=== PATIENT | male | born 1995 | race Caucasian/White ===

== ENCOUNTER 2019-02-21 13:56 | Emergency (ER) | payer OTHER, SELFPAY ==
[2019-02-21 14:00] VITALS: BP 151/84; PULSE 102; RESP 18; TEMP 37.6; O2SAT 99
--- NOTE | 2019-02-21 14:15 | DI.RAD.S_ITS ---
PROCEDURE: XR WRIST RT MIN 3V INDICATIONS: wrist injury TECHNIQUE: 4 views of the wrist were acquired. COMPARISON: None. FINDINGS: Bones: No fractures or dislocations. No suspicious bony lesions. Scaphoid view: The scaphoid appears intact. Soft tissues: No suspicious soft tissue calcifications. IMPRESSION: 1. No displaced fracture or dislocation. The Dictated by: Martin Caruso M.D. on 02/21/2019 at 15:09 Approved by: Martin Caruso M.D. on 02/21/2019 at 15:10
[2019-02-21 14:20] VITALS: TEMP 37.2
--- NOTE | 2019-02-21 14:30 | DI.RAD.S_ITS ---
PROCEDURE: XR CALCANEOUS RT MIN 2V INDICATIONS: Fall onto heels bilaterally TECHNIQUE: Two views of the calcaneus were acquired. COMPARISON: None. FINDINGS: Bones: No depressed or displaced calcaneal fracture. No suspicious bony lesions. Soft tissues: No suspicious calcifications. Achilles tendon appears grossly intact. IMPRESSION: 1. No depressed or displaced calcaneal fracture. If clinical concern persists for a nondisplaced fracture, recommend a repeat study in 7-10 days. Dictated by: Martin Caruso M.D. on 02/21/2019 at 15:00 Approved by: Martin Caruso M.D. on 02/21/2019 at 15:07
--- NOTE | 2019-02-21 14:30 | DI.RAD.S_ITS ---
PROCEDURE: XR FOOT RT MIN 3V INDICATIONS: Fall onto heels bilaterally TECHNIQUE: 3 views of the foot were acquired. COMPARISON: [facility], CR, XR ANKLE RT MIN 3V, 02/21/2019, 14:38. [facility], RG, XR FOOT 2V RIGHT, 11/11/1998, 13:45. FINDINGS: Bones: No displaced or depressed fractures. No dislocations. No suspicious bony lesions. Soft tissues: No tibiotalar joint effusion. Achilles tendon appears normal. IMPRESSION: 1. No displaced or depressed fractures. If clinical concern persists for a nondisplaced calcaneal fracture, recommend a repeat study in 7-10 days. Dictated by: Martin Caruso M.D. on 02/21/2019 at 14:58 Approved by: Martin Caruso M.D. on 02/21/2019 at 14:59
--- NOTE | 2019-02-21 14:30 | DI.RAD.S_ITS ---
PROCEDURE: XR FOOT LT MIN 3V INDICATIONS: Fall onto heels bilaterally TECHNIQUE: 3 views of the foot were acquired. COMPARISON: [facility], CR, XR FOOT RT MIN 3V, 02/21/2019, 14:35. FINDINGS: Bones: No displaced fracture or subluxation. No suspicious bony lesions. Soft tissues: No tibiotalar joint effusion. Achilles tendon appears normal. IMPRESSION: 1. No displaced fracture or subluxation. Dictated by: Martin Caruso M.D. on 02/21/2019 at 15:08 Approved by: Martin Crauso M.D. on 02/21/2019 at 15:09
--- NOTE | 2019-02-21 14:30 | DI.RAD.S_ITS ---
PROCEDURE: XR CALCANEOUS LT MIN 2V INDICATIONS: Fall onto heels bilaterally TECHNIQUE: Two views of the calcaneus were acquired. COMPARISON: [facility], KYLE, XR FOOT LT MIN 3V, 02/21/2019, 14:45. FINDINGS: Bones: No displaced or depressed fracture. No suspicious bony lesions. Soft tissues: No suspicious calcifications. Achilles tendon appears grossly intact. IMPRESSION: 1. No displaced or depressed fracture. If clinical concern persists for nondisplaced fracture, recommend a repeat study in 7-10 days. Dictated by: Martin Caruso M.D. on 02/21/2019 at 15:07 Approved by: Martin Caruso M.D. on 02/21/2019 at 15:08
--- NOTE | 2019-02-21 14:30 | DI.RAD.S_ITS ---
PROCEDURE: XR ANKLE RT MIN 3V INDICATIONS: Fall onto heels bilaterally, R ankle pain TECHNIQUE: 3 or views of the ankle were acquired. COMPARISON: [facility], RG, XR FOOT 2V RIGHT, 11/11/1998, 13:45. [facility], CR, XR CALCANEOUS RT MIN 2V, 02/21/2019, 14:40. FINDINGS: Bones: No depressed or displaced fractures. There is a longitudinal lucency within the fibula on the oblique view which is likely artifactual in absence of associated soft tissue swelling. Ankle mortise is normally aligned. No suspicious bony lesions. Soft tissues: No tibiotalar joint effusion. Achilles tendon appears normal. IMPRESSION: 1. No depressed or displaced fracture. If clinical concern persists, recommend a repeat study in 7-10 days. 2. Linear lucency in the distal fibula likely artifactual in absence of overlying soft tissue swelling. Dictated by: Martin Caruso M.D. on 02/21/2019 at 14:51 Approved by: Martin Caruso M.D. on 02/21/2019 at 14:56
--- NOTE | 2019-02-21 14:33 | ED.LOWEXIN ---
HPI - Extremity Injury (Lower) General Chief Complaint: Extremity Injury, Lower Stated Complaint: both ankles rt wrist pain/fell off boat on ground Time Seen by Provider: 02/21/19 14:10 Source: patient Mode of arrival: Wheelchair History of Present Illness HPI Narrative: This is a 23-year-old male presents with bilateral heel pain and right wrist pain. 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 He did not hit his head or neck. He is complaining of pain in his right wrist which is moderate in severity and worse with flexion or palpation, and pain is bilateral heels is worse with bearing weight. He has been able to walk but with great pain. He denies any tingling or numbness. No chest pain, shortness of breath, abdominal pain, or confusion. Related Data Allergies Allergy/AdvReac Type Severity Reaction Status Date / Time No Known Drug Allergies Allergy Verified 02/21/19 14:05 Review of Systems Constitutional Constitutional: Denies fever(s) Musculoskeletal Comments: Extremity pain Integumentary/Breasts Skin/Breast: Denies sores and Denies wounds Patient History Social History Smoking Status: Never smoker Smoking Status: Never smoker alcohol intake frequency: 0-2 drinks per day Substance Use Type: does not use Exam Narrative Exam Narrative: General: Non-toxic, well-appearing Head: Atraumatic Neck: Normal range of motion, no midline tenderness to palpation, no external signs of trauma Cardiac: RRR on my exam Respiratory: Normal work of breathing, clear to auscultation bilaterally Abd: Soft, non-tender to palpation in all 4 quadrants Extremities: No gross deformities in all 4 extremities. Patient has tenderness over the radial dorsal aspect of the right wrist, there is no tenderness of hands or digits, with the proximal forearm. Patient has tenderness to his bilateral heels, no forefoot tenderness to palpation. His right ankle is mildly tender over the bilateral malleoli, left ankle was nontender. Feet and arms are neurovascularly intact with strong distal pulses, good capillary refill, and intact motor function to fingers and toes. Neuro: Alert and oriented x 3 Initial Vital Signs Initial Vital Signs: Vital Signs Temperature 99.6 F 02/21/19 14:00 Pulse Rate 102 H 02/21/19 14:00 Respiratory Rate 18 02/21/19 14:00 Blood Pressure 151/84 H 02/21/19 14:00 Pulse Oximetry 99 02/21/19 14:00 Course Orders Ordered: ED Orders 02/21/19 14:15 XR wrist RT min 3V Stat 02/21/19 14:30 XR ankle RT min 3V Stat XR calcaneus LT min 2V Stat XR calcaneus RT min 2V Stat XR foot LT min 3V Stat XR foot RT min 3V Stat Vital Signs Vital signs: Vital Signs - 8 hr 02/21/19 14:00 02/21/19 14:20 02/21/19 16:40 Temperature 99.6 F 98.9 F Pulse Rate 102 H 91 H Respiratory Rate 18 18 Blood Pressure 151/84 H 139/87 Pulse Oximetry 99 98 [facility] - Extremity Injury (Lower) Differential Diagnosis Differential diagnosis: Likely ankle sprain and strain and other (Ankle/foot/calcaneal fracture, wrist sprain, fracture) Imaging Data XR Bilateral feet, bilateral calcaneus, right ankle, Right wrist: Radiologist's impression: No acute fractures or osseous abnormality seen on imaging. [facility] Narrative Medical decision making narrative: Patient is well-appearing on arrival, was able to bear some weight on his feet, his tenderness is mostly located over his bilateral heels. X-rays of all those tender regions was performed and there are no signs of fracture dislocation. There was a small linear lucency seen on the distal fibula on the ankle x-ray, repeat examination palpation is area causes no point tenderness, he is no swelling or bruising or signs of external trauma over this area either. He was able to get out of bed and bear weight on his bilateral feet, making occult fracture less likely. I also check specifically for scaphoid tenderness, he had none on his right wrist. I discussed the results of her studies, and that there is a risk of occult fracture. I recommended that he use crutches until he is able to walk normally, and that he return if he has any worsening symptoms, that he should repeat examinations and potentially imaging in 1 week if he is not having improvement in his symptoms. Patient agreed to this plan and was discharged home in the care of his father Discharge Plan Departure Patient Disposition: Home Clinical Impression: Heel pain, bilateral Discharge Date/Time: 02/21/19 16:45 Instructions: How To Perform RICE (Rest, Ice, Compress, Elevate) Activity Restrictions/Additional Instructions: Your x-rays do not show signs of broken bones today. Occasionally intial x-rays miss very small or nondisplaced breaks, so if your pain is getting worse or if it is not improving over the next week, You should be reassessed in a week wither with your PCP or here in the ED for consideration of repeat imaging. You should use crutches until you are able to walk on you feet and heels normally. Youmay take Tylenol ibuprofen for discomfort Stand Alone Forms: Work Release Note
[2019-02-21 16:40] VITALS: BP 139/87; PULSE 91; RESP 18; O2SAT 98
== END 2019-02-21 16:45 | disposition home or self-care (01) ==
PROVIDERS: Emergency Provider Emergency Medicine
DX: S90.32XA Contusion of left foot, initial encounter (principal); S90.31XA Contusion of right foot, initial encounter; M25.531 Pain in right wrist; W17.89XA Other fall from one level to another, initial encounter; Y99.0 Civilian activity done for income or pay
CPT/HCPCS: 73110; 73610; 73630; 73650; 99283

== ENCOUNTER → 2022-10-09 13:01 | Outpatient (CLI) | payer OTHER, SELFPAY ==
--- NOTE | 2022-10-09 13:07 | DI.RAD.S_ITS ---
PROCEDURE: XR KNEE RT 3V INDICATIONS: Knee pain TECHNIQUE: 3 views of the knee were acquired. COMPARISON: None. FINDINGS: Bones: No fractures or dislocations. No suspicious bony lesions. Soft tissues: No joint effusion. No suspicious soft tissue calcifications. IMPRESSION: No osseous lesion. If symptoms and/or clinical suspicion for pathology persists, further assessment with advanced imaging (e.g. CT, MRI or bone scan) should be considered. Dictated by: Isabel Cervantes MD, PhD on 10/09/2022 at 14:10 Approved by: Isabel Cervantes MD, PhD on 10/09/2022 at 14:10
== END ==
PROVIDERS: PCP Registered Nurse; Referring Provider Registered Nurse; Visit Provider Registered Nurse
DX: M25.561 Pain in right knee (principal)
CPT/HCPCS: 73562

== ENCOUNTER → 2023-11-26 13:55 | Outpatient (CLI) | payer OTHER, SELFPAY ==
--- NOTE | 2023-11-26 13:56 | DI.RAD.S_ITS ---
PROCEDURE: XR WRIST RT MIN 3V INDICATIONS: r/o fracture s/p FOOSH TECHNIQUE: Four views of the wrist were acquired. COMPARISON: [facility], CR, XR WRIST RT MIN 3V, 02/21/2019, 14:47. FINDINGS: Bones: No fractures or dislocations. No suspicious bony lesions. Soft tissues: No suspicious soft tissue calcifications. IMPRESSION: No acute bony abnormality. Dictated by: Jean Acosat M.D. on 11/27/2023 at 15:57 Approved by: Jean Acosta M.D. on 11/27/2023 at 15:58
== END ==
PROVIDERS: Referring Provider Nurse Practitioner Family; Visit Provider Nurse Practitioner Family
DX: R52 Pain, unspecified (principal)
CPT/HCPCS: 73110

== ENCOUNTER → 2023-12-03 08:02 | Outpatient (CLI) | payer OTHER, SELFPAY ==
--- NOTE | 2023-12-03 08:03 | DI.ECHO.S_ITS ---
[facility]---------+ [facility] : : [id number] : [address] [place] : : [id number] : : Phone: [phone] Echocardiogram Report + + :Name: DEVON ISRAEL Study Date: 12/03/2023 Height: 74 in : :[facility] ReadingLocation: Weight: 160 lb : : Gender: Male BSA: 2.0 m2 : :: 1995 Age: 28 yrs BP: 139/89 mmHg: :Reason For Study: GIDDINESS, DIZZINESS, PALPITATIONS : :Ordering Physician: GAYLA, : :LUCY Performed By: Cele Nolan : :Referring: LUCY SHUKLA : + + Interpretation Summary Normal sinus rhythm. Normal LV size, wall thickness, wall motion and LV systolic function. Ejection fraction is 55-60%. Normal chamber sizes. No significant valvular abnormalities. No prior study available for comparison. Procedure: A two-dimensional transthoracic echocardiogram with color flow and Doppler was performed. The study quality was technically adequate. There is no prior echocardiogram noted for this patient. The patient was in sinus rhythm with heart rates between 65-73 bpm during the exam. Left Ventricle: The left ventricle is normal in size and wall thickness. The ejection fraction is estimated to be 55-60%. Right Ventricle: The right ventricle is normal in size and function. Atria: The left atrial size is normal. Right atrial size is normal. There is no Doppler evidence for an interatrial shunt. Mitral Valve: There is a flat closure plane of the the mitral valve leaflets. There is trace mitral regurgitation. Aortic Valve: The aortic valve is trileaflet. The aortic valve opens well. There is no aortic valve stenosis. There is trace aortic regurgitation. Tricuspid Valve: The tricuspid valve is normal in structure and function. There is trace tricuspid regurgitation. Pulmonic Valve: The pulmonic valve is not well visualized. There is no pulmonic valvular regurgitation. Great Vessels: The aortic root is normal size. The dimensions of the ascending aorta are normal. The IVC is of normal diameter and collapses greater than 50% with a sniff. This suggests a low right atrial pressure of 3 mm Hg. Pericardium/ Pleura There is no pericardial effusion. There is no pleural effusion. MMode/2D Measurements & Calculations LVIDd: 4.4 cm LVOT diam: 2.0 cm LVIDs: 3.2 cm Ao root diam: 3.4 cm FS: 27.7 % asc Aorta Diam: 2.5 cm IVSd: 0.74 cm Ao Arch Diam (Prox Trans): 2.2 cm LVPWd: 0.86 cm LV veronica. diameter/BSA (cm/m^2): 2.2 LV sys. diameter/BSA (cm/m^2): 1.6 LA A2 area: 14.9 cm2 RA long axis: 3.7 cm LA A4 area: 12.9 cm2 RA area: 10.6 cm2 LA length (vol): 4.4 cm RA vol: 26.2 ml LA vol: 36.7 ml RA : 13.2 ml/m2 LA vol index: 18.6 ml/m2 IVC diam: 0.80 cm RVD1 (basal): 3.2 cm RVD2 (mid): 2.6 cm TAPSE: 2.3 cm Doppler Measurements & Calculations Ao V2 max: 94.2 cm/sec LVOT Max Zuhair: 69.2 cm/sec Ao V2 mean: 69.5 cm/sec LV V1 max P.9 mmHg Ao max P.5 mmHg LV V1 VTI: 12.8 cm Ao mean P.1 mmHg JAMES(I,D): 2.3 cm2 Ao V2 VTI: 17.5 cm JAMES(V,D): 2.3 cm2 sev ratio: 0.73 JAMES indexed to BSA (cm^2/m^2): 1.2 MV E max zuhair: 99.1 cm/sec PA V2 max: 86.6 cm/sec MV A max zuhair: 36.6 cm/sec PA V2 mean: 63.9 cm/sec MV E/A: 2.7 PA mean P.7 mmHg Lat Peak E' Zuhair: 15.9 cm/sec PA pr(Accel): 19.1 mmHg E/E' lat: 6.2 MV dec time: 0.17 sec SV(LVOT): 40.7 ml Electronically signed by: Lashonda Montgomery M.D. on Reading Physician:12/03/2023 03:51 PM
== END ==
PROVIDERS: PCP Registered Nurse; Referring Provider Registered Nurse; Visit Provider Registered Nurse
DX: R00.2 Palpitations (principal); R42 Dizziness and giddiness
CPT/HCPCS: 93306

== ENCOUNTER → 2024-04-27 10:53 | Outpatient (CLI) | payer OTHER, SELFPAY ==
--- NOTE | 2024-04-27 10:53 | DI.MRI.S_ITS ---
PROCEDURE: MR WRIST LT WO CON INDICATIONS: localized swelling of left forearm TECHNIQUE: Noncontrast coronal proton density fast spin echo and T2 fast spin echo with fat saturation; coronal 3-D gradient echo, axial T1 spin echo and T2 fast spin echo with fat saturation, sagittal T1 spin echo through the wrist. COMPARISON: [facility], CR, XR WRIST RT MIN 3V, 11/26/2023, 13:54. FINDINGS: Image quality: Excellent. Bones and cartilage: The carpal bones are normally aligned. No bone marrow contusions or fractures. No evidence for avascular necrosis. Type 2 lunate. No focal cartilage defect. Mild subchondral cystic changes within the posterior trapezoid is likely degenerative. Carpal ligaments: The scapholunate and lunotriquetral ligaments appear intact. On sagittal images, the pisohamate ligament appears intact. Triangular fibrocartilage complex: The triangular fibrocartilage appears intact. The adjacent meniscal homolog appears normal in the absence of intra-articular contrast. The extensor carpi ulnaris tendon is normal in location and morphology. Tendons and soft tissues: Mild tenosynovitis of the flexor tendons proximal to the carpal tunnel. The ulnar nerve appears normal within Guyon's canal. Partial longitudinal tearing of the extensor carpi ulnaris tendon at the level of the distal ulna with superimposed tendinosis and trace tenosynovitis. Mild tendinosis and tenosynovitis of the 1st extensor compartment tendons. Mild 4th compartment tenosynovitis. The remaining extensor tendon compartments demonstrate normal morphology, without pathologic tendon sheath fluid. No soft tissue ganglion cysts. IMPRESSION: 1. Partial longitudinal tearing of the extensor carpi ulnaris tendon at the level of the distal ulna with superimposed tendinosis and trace tenosynovitis. 2. Mild tendinosis and tenosynovitis of the 1st and 4th extensor compartment tendons. 3. Mild tenosynovitis of the flexor tendons proximal to the carpal tunnel. 4. Focal chronic cystic changes within the dorsal portion of the trapezoid, likely related to degenerative changes or remote prior trauma. Approved by: Oneal Aldana M.D. on 04/27/2024 at 12:25
== END ==
PROVIDERS: Referring Provider Family Medicine Sports Medicine; Visit Provider Family Medicine Sports Medicine
DX: S66.812A Strain of other specified muscles, fascia and tendons at wrist and hand level, left hand, initial encounter (principal); M65.832 Other synovitis and tenosynovitis, left forearm; R22.32 Localized swelling, mass and lump, left upper limb
CPT/HCPCS: 73221